=== PATIENT | male | born 1950 | race Caucasian/White ===

== ENCOUNTER 2017-10-13 01:13 | Inpatient (IN) | payer MEDICARE, BC ==
[2017-10-13] VITALS (15 sets, daily range): BP systolic 94–217; BP diastolic 42–110
[~2017-10-13] VITALS: Ht 175.3 cm; Wt 85.7 kg
[2017-10-13 01:48] LABS: HEMOGLOBIN 15.1 gm/dL (14.0-18.0); MCH 31.2 pg (26.0-34.0); NUCLEATED RBCS 0 /100WBC
[2017-10-13 01:55] LABS: MCHC 33.5 g/dL (28.0-37.0); MPV 9.2 fl. (7.2-11.1); PLATELET COUNT* 245 thou/uL (150-400); RBC 4.85 mil/uL (4.50-6.00); RDW-CV 13.1 % (10.5-14.5); WBC 23.6 thou/uL (4.0-11.0)
[2017-10-13 01:57] LABS: ANION GAP 10 mmol/L (7-16); BUN 23 mg/dL (7-18); CALCIUM 8.4 mg/dL (8.5-10.1); CHLORIDE 100 mmol/L (98-107); CO2 28 mmol/L (21-32); CREATININE 0.9 mg/dL (0.6-1.3); GLUCOSE 134 mg/dL (70-99); POTASSIUM 4.3 mmol/L (3.5-5.1); SODIUM 138 mmol/L (136-145)
[2017-10-13 02:13] LABS: ALKALINE PHOSPHATASE 102 U/L (46-116); LIPASE 93 U/L (73-393); MAGNESIUM 1.8 mg/dL (1.8-2.4); NT-PRO BRAIN NAT PEPTIDE 92 pg/mL (<300); SGOT 39 U/L (15-37); SGPT 39 U/L (30-65); TOTAL BILIRUBIN 0.3 mg/dL (<0.1-1.0); TOTAL PROTEIN 7.2 g/dL (6.4-8.2); TROPONIN-I LEVEL <0.06 ng/mL (<0.06)
[2017-10-13 02:15] LABS: APTT 20.5 Seconds (25.0-31.3); PROTIME 9.3 Seconds (9.20-11.50)
[2017-10-13 03:04] LABS: ABSOLUTE LYMPHOCYTES 2.1 thou/uL (0.8-5.3); ABSOLUTE MONOCYTES 1.7 thou/uL (0.0-1.2); ABSOLUTE NEUTROPHILS 19.8 thou/uL (1.6-8.1); PLATELET ESTIMATE ADEQUATE
[2017-10-13 03:05] LABS: CLUMPED PLTS OCCASIONAL
[2017-10-13 09:43] LABS: BE -2.3 mmol/L (-2 to +3); HCO3 24.1 mmol/L (22.0-26.0); PCO2 47.5 mmHg (35.0-45.0); pH 7.323 (7.340-7.450)
[2017-10-13 09:45] LABS: PO2 253.9 mmHg (75.0-100.0)
[2017-10-13 09:59] LABS: INFLUENZA B ANTIGEN None Detected (None Detect)
--- NOTE | 2017-10-13 12:13 | EKG ---
[place] [address] ELECTROCARDIOGRAM REPORT Name: YAQUELIN BOYLE Room: [address] ADM IN M.R.#: [id number] Admission: 10/13/17 Attend Phys: Camilo Rivera Discharge: Date of : 50 Report #: [id number] THIS REPORT FOR: //name// [facility] ED Test Date: 2017-10-13 Test Time: 01:36:25 Pat Name: YAQUELIN BOYLE Department: Room: [facility] Gender: M Mechanical Shovel Operator: MAJOR : 1950 Requested By: Sarmad Gardner Order Number: [id number] MD: Rafat Alford Measurements Intervals [place] Rate: 129 P: 73 MS: 155 QRS: 129 QRSD: 125 T: -36 QT: 299 QTc: 438 Interpretive Statements Sinus tachycardia Consider right atrial enlargement RBBB and LPFB Artifact in lead(s) I,II,III,aVR,aVF,V1,V2,V3,V4,V5,V6 No previous ECG available for comparison Electronically Signed On 10-13-2017 12:13:15 BULK MAIL CLERK by Rafat Alford [email or web address] <ELECTRONICALLY SIGNED> By: Rafat Alford MD, FACC 10/13/17 1213 0136 0136 Rafat Alford MD, FAC /EPI
[2017-10-13 15:24] LABS: CHOLESTEROL 245 mg/dL (<200); HDL CHOLESTEROL 61 mg/dL (>40); LDL CHOLESTEROL 162 mg/dL (<100); TRIGLYCERIDE 110 mg/dL (<150); VLDL 22 mg/dL (<40)
[2017-10-13 15:31] LABS: SERUM ASSESSMENT Clear
[2017-10-14] VITALS (10 sets, daily range): BP systolic 82–142; BP diastolic 43–78
[2017-10-14 03:40] LABS: HEMATOCRIT 39.9 % (42.0-52.0); HEMOGLOBIN 13.4 gm/dL (14.0-18.0); MCH 30.8 pg (26.0-34.0); MCHC 33.7 g/dL (28.0-37.0); MCV 91.3 fL (80.0-100.0); MPV 8.7 fl. (7.2-11.1); NUCLEATED RBCS 0 /100WBC; PLATELET COUNT* 206 thou/uL (150-400); RBC 4.37 mil/uL (4.50-6.00); RDW-CV 13.1 % (10.5-14.5)
[2017-10-14 04:00] LABS: BE 0.8 mmol/L (-2 to +3); HCO3 26.8 mmol/L (22.0-26.0); PCO2 48.7 mmHg (35.0-45.0); pH 7.359 (7.340-7.450)
[2017-10-14 04:01] LABS: CALCIUM 8.6 mg/dL (8.5-10.1); CREATININE 0.9 mg/dL (0.6-1.3); POTASSIUM 4.4 mmol/L (3.5-5.1)
[2017-10-14 04:38] LABS: ABSOLUTE LYMPHOCYTES 0.1 thou/uL (0.8-5.3); ABSOLUTE MONOCYTES 0.3 thou/uL (0.0-1.2); ABSOLUTE NEUTROPHILS 13.6 thou/uL (1.6-8.1); PLATELET ESTIMATE ADEQUATE
[2017-10-14 04:39] LABS: GIANT PLATELETS OCCASIONAL
[2017-10-15] VITALS: BP 145/71
[2017-10-15 03:41] VITALS: BP 158/66
[2017-10-15 04:04] LABS: ABSOLUTE LYMPHOCYTES 0.4 thou/uL (0.8-5.3); ABSOLUTE MONOCYTES 0.6 thou/uL (0.0-1.2); ABSOLUTE NEUTROPHILS 14.1 thou/uL (1.6-8.1); HEMATOCRIT 38.7 % (42.0-52.0); LYMPHOCYTES 2.5 %; MCH 30.9 pg (26.0-34.0); MCHC 33.5 g/dL (28.0-37.0); MCV 92.4 fL (80.0-100.0); MONOCYTES 3.9 %; MPV 8.9 fl. (7.2-11.1); NUCLEATED RBCS 0 /100WBC; PLATELET COUNT* 217 thou/uL (150-400); POLYS 93.6 %; RBC 4.19 mil/uL (4.50-6.00); WBC 15.1 thou/uL (4.0-11.0)
[2017-10-15 08:00] VITALS: BP 122/66; BP 125/50
[2017-10-15 16:00] VITALS: BP 109/87
[2017-10-15 20:15] VITALS: BP 139/71
[2017-10-16 08:00] VITALS: BP 144/73
--- NOTE | 2017-10-16 08:07 | CON ---
[address] [address] CONSULTATION Name: CHAU BOYLE Room: [address] IN M.R.#: [id number] Admission: 10/13/17 Attend Phys: Camilo Rivera Discharge: Date of : 50 Report #: [id number] THIS REPORT FOR: //name// CC: Cody Bateman REASON FOR CONSULTATION: Acute respiratory failure. HISTORY OF PRESENT ILLNESS: The patient is a 66-year-old male patient with known history of COPD, although he is not on oxygen at home, but he told me he has a nebulization machine at home. He presented to the hospital and admitted through the Emergency Room on 10/13/2017 with a chief complaint of increased shortness of breath over a course of 1 week. He is a current smoker. He has a nebulization machine at home that he tried to use that did not help his symptoms, although as an outpatient, he started an antibiotic that did not help. This cough was associated with thick sputum, and he could not produce phlegm, and he is very wheezy. Since he came in, he had been on BiPAP, although he did not require much oxygen, but he cannot come off the BiPAP. It was noted he is DNR/DNI. He denied fever, chest pain, shortness of breath, palpitation. He denied any headache or blurring of vision. He denied any lower extremity edema. He denied any sick contacts, but his family started on Tamiflu after his diagnosis. He denied any abdominal pain, nausea or vomiting. PAST MEDICAL HISTORY: History of COPD, recurrent bronchitis. PAST SURGICAL HISTORY: No major chest surgery. ALLERGIES: No known drug allergies. FAMILY HISTORY: Reviewed with the patient, noncontributory. SOCIAL HISTORY: He continues to smoke, but does not drink alcohol. Does not abuse drugs. HOME MEDICATIONS: He was recently on a course of antibiotics. Currently, he is on steroids, DuoNebs, Rocephin and azithromycin. REVIEW OF SYSTEMS: Full system review of the patient negative as mentioned above. PHYSICAL EXAMINATION: VITAL SIGNS: He is on BiPAP 30% FiO2, O2 saturation 94%, blood pressure 97/49, breathing 14 times a minute, temperature 36.0. GENERAL: Although he is on BiPAP, he was sitting in the bed, and he was talking. I was able to understand him through the BiPAP mask. HEAD: Normocephalic, atraumatic. EYES: Pupils equal, reactive to light. Extra[place] [address] CONSULTATION Name: CHAU BOYLE Room: [address]#: [id number] Admission: 10/13/17 Attend Phys: Camilo Rivera Discharge: Date of : 50 Report #: [id number] Not pale or jaundiced. ENT: External ear looks healthy and normal. Oral cavity not examined due to the BiPAP mask. NECK: Supple. No palpable lymph node. No palpable thyroid. Trachea is central. CHEST: On inspection normal, no deformities, however, on auscultation significant wheezes bilaterally with prolonged expiratory phase. No definite crackles. CARDIOVASCULAR: S1, S2, no murmur. ABDOMEN: Benign, soft, lax, nontender, positive bowel sounds. EXTREMITIES: Lower extremity: No edema, no calf tenderness. MUSCULOSKELETAL: Normal inspection, no deformities. PSYCHIATRIC: Mood and affect anxious. NEUROLOGIC: Moving 4 extremities spontaneously. No focal weakness. LYMPHATICS: No palpable lymph node. SKIN: Normal for age and race. No rash. LABORATORY DATA: His chest x-ray did not show acute process. He had 2 sets of ABGs yesterday and this morning, it showed hypercapnic respiratory failure, although this morning it looks better with a pH of 7.35, pCO2 of 48 and pO2 of 101. This was on 40% FiO2. His creatinine is 0.9, BUN 26, potassium 4.4. His BNP was not elevated. His INR is 1. His influenza A screen is positive. IMPRESSION: 1. Acute hypoxic and hypercapnic respiratory failure. 2. Bronchospasm. 3. Chronic obstructive pulmonary disease exacerbation. 4. Influenza A. The patient is noted to be DNR/DNI; however, he is reasonably tolerating the BiPAP. I would continue the BiPAP for now. ABG this morning more acceptable. Continue the patient on Tamiflu. I will add Mucinex, Brovana, Pulmicort. Continue the patient on scheduled nebulization treatment. I agree with the steroids and empirically on antibiotics. Discussed with the patient. I would continue the current therapy. I will do a chest x-ray and ABG in the morning. Condition guarded, prognosis guarded. However, he is tolerating the current measures and reporting some improvement. Thank you for the consult. <ELECTRONICALLY SIGNED> By: Rafiq Brandon MD 10/16/17 0807 0843 1408Gay Callahan MD /nt
[2017-10-16 09:13] LABS: BE 3.2 mmol/L (-2 to +3); HCO3 26.8 mmol/L (22.0-26.0); PCO2 37.2 mmHg (35.0-45.0); pH 7.475 (7.340-7.450)
[2017-10-16 09:16] LABS: PO2 55.8 mmHg (75.0-100.0)
[2017-10-16] MEDS ORDERED: SINGULAIR 10 MG10 M1 PO (09:35)
[2017-10-16] MEDS ORDERED: KEFLEX500 M1 PO (09:35)
[2017-10-16] MEDS ORDERED: PREDNISONE 10 M10 MG PO (09:35)
[2017-10-16 10:30] VITALS: BP 144/73
[2017-10-16] MEDS ORDERED: ASPIRIN300 MG PO (10:53)
[2017-10-16] MEDS ORDERED: ASPIRIN325 PO (11:23)
--- NOTE | 2017-10-16 13:58 | 2DMMODE ---
[place] [address] 2 D/M-MODE ECHOCARDIOGRAM Name: CHAU BOYLE Room: [address] IN [facility]#: [id number] Admission: 10/13/17 Attend Phys: Cordell Bateman Discharge: 10/16/17 Date of : 50 Date of Service: 10/16/17 1357 Report #: [id number] THIS REPORT FOR: //name// APPROVED REPORT Study performed: 10/16/2017 09:23:35 EXAM: Comprehensive 2D, Doppler, and color-flow Echocardiogram Patient Location: In-Patient Room #: [facility] Status: routine BSA: 2.02 HR: 80 bpm BP: 139/71 mmHg Rhythm: NSR Other Information Study Quality: Good Indications Abnormal ECG Dyspnea 2D Dimensions LVEF(%): 63.04 (>50%) IVSd: 9.87 (7-11mm) LVOT Diam: 21.42 (18-24mm) LVDd: 49.34 mm PWd: 9.29 (7-11mm) Ascending Ao: 34.41 (22-36mm) LVDs: 32.45 (25-40mm) Aortic Root: 33.96 mm Cobian's LVEF: 63.04 % Volumes Left Atrial Volume (Systole) LA ESV Index: 22.90 mL/m2 Aortic Valve AoV Peak Yuval.: 1.31 m/s AO Peak Gr.: 6.84 mmHg LVOT Max P.34 mmHg AO Mean Gr.: 3.69 mmHg LVOT Mean P.67 mmHg LVOT Max V: 1.04 m/s AO V2 VTI: 26.73 cm LVOT Mean V: 0.58 m/s JAMAR (VTI): 2.79 cm2 LVOT V1 VTI: 20.69 [place] [address] 2 D/M-MODE ECHOCARDIOGRAM Name: CHAU BOYLE Room: [address]#: [id number] Admission: 10/13/17 Attend Phys: Cordell Bateman Discharge: 10/16/17 Date of : 50 Date of Service: 10/16/17 1357 Report #: [id number] E/A Ratio: 1.08 MV Decel. Time: 105.67 ms MV E Max Yuval.: 0.92 m/s MV PHT: 30.64 ms MVA (PHT): 7.18 cm2 TDI E/Lateral E': 8.36 E/Medial E': 6.57 Medial E' Yuval.: 0.14 m/s Lateral E' Yuval.: 0.11 m/s Pulmonary Valve PV Peak Yuval.: 0.97 m/s PV Peak Gr.: 3.73 mmHg Tricuspid Valve TR Peak Gr.: 27.75 mmHg RVSP: 32.00 mmHg Left Ventricle The left ventricle is normal size. There is normal LV segmental wall motion. There is normal left ventricular wall thickness. Left ventricular systolic function is normal. The left ventricular ejection fraction is within the normal range. LVEF is 55-60%. The left ventricular diastolic function is normal. Right Ventricle The right ventricle is normal size. The right ventricular systolic function is normal. Atria The left atrium size is normal. The right atrium size is normal. Aortic Valve The aortic valve is normal in structure. No aortic regurgitation is present. There is no aortic valvular stenosis. Mitral Valve The mitral valve is normal in structure. There is no mitral valve regurgitation noted. No evidence of mitral valve stenosis. Tricuspid Valve The tricuspid valve is normal in structure. Trace tricuspid regurgitation. The RVSP is 30-35 mmHg. Pulmonic Valve The pulmonary valve is normal in structure. [place] [address] 2 D/M-MODE ECHOCARDIOGRAM Name: CHAU BOYLE Room: [address] IN M.R.#: [id number] Admission: 10/13/17 Attend Phys: Cordell Bateman Discharge: 10/16/17 Date of : 50 Date of Service: 10/16/17 1357 Report #: [id number] valvular regurgitation. Great Vessels The aortic root is normal in size. IVC is normal in size and collapses with >50% inspiration Pericardium There is no pericardial effusion. <Conclusion> LVEF is 55-60%. There is normal LV segmental wall motion. No aortic regurgitation is present. There is no aortic valvular stenosis. There is no mitral valve regurgitation noted. No evidence of mitral valve stenosis. Trace tricuspid regurgitation. The RVSP is 30-35 mmHg. <ELECTRONICALLY SIGNED> By: Rafat Alford MD, FACC 10/16/17 1357 1357 1357 Rafat Alford MD, FACC /INF
--- NOTE | 2017-10-16 15:19 | CON ---
[address] [address] CONSULTATION Name: CHAU BOYLE Room: [address]#: [id number] Admission: 10/13/17 Attend Phys: Camilo Rivera Discharge: 10/16/17 Date of : 50 Report #: [id number] THIS REPORT FOR: //name// CC: Cody Bateman DATE OF SERVICE: 10/13/2017 REASON FOR CONSULTATION: Shortness of breath, abnormal troponin. PRIMARY CARE PHYSICIAN: Cody Hedrick MD. CHIEF COMPLAINT: Shortness of breath. HISTORY OF PRESENT ILLNESS: The patient is a 66-year-old man with chronic obstructive pulmonary disease, presented with 4 days of increasing shortness of breath. We are asked to see him because he had a right bundle branch block and a troponin of 0.87. At no time during his hospitalization or before the hospitalization had the patient complained of chest pain, neck pain or jaw pain. He had been short of breath. He had a nonproductive cough. He denies fever or chills. He has no documented history of heart disease. He denies exertional chest pain or pressure. He denies palpitations, syncope, or presyncope. He has been in sinus rhythm, sinus tachycardia while on telemetry in the ICU. Currently, he is respiring with a BiPAP machine as his oxygen levels were quite low on initial presentation with sats in the 80s. He denies syncope or presyncope. PAST MEDICAL HISTORY: He has a history of negative stress testing about 5 years ago. He has a history of chronic obstructive pulmonary disease. PAST SURGICAL HISTORY: No recent surgeries. HOME MEDICATIONS: Include albuterol nebulizer. ALLERGIES: He has no known drug allergies. REVIEW OF SYSTEMS: GASTROINTESTINAL: [place] [address] CONSULTATION Name: CHAU BOYLE Room: [address]#: [id number] Admission: 10/13/17 Attend Phys: Camilo Rivera Discharge: 10/16/17 Date of : 50 Report #: [id number] GENITOURINARY: No dysuria or hematuria. CARDIOVASCULAR: No chest pain. No palpitation or syncope. HEMATOLOGIC: No anemia or bleeding disorders. RENAL: No history of kidney failure. ENDOCRINE: He is not known to be a diabetic. PERIPHERAL ARTERY DISEASE: Denies history of cardiovascular disease. ALLERGIES: Denies any aspirin or contrast allergies. SKIN: No rashes. EYES: No loss of vision. THROAT: Denies any dysphagia. SOCIAL HISTORY: He is an active smoker. MEDICATIONS: He is on Solu-Medrol and antibiotics, ceftriaxone and azithromycin. PHYSICAL EXAMINATION: VITAL SIGNS: Blood pressure 135/70, respirations 22, O2 sats 100 on BiPAP 5 liters bleeding. GENERAL: This is a middle-aged male. He is alert, in no apparent distress. NECK: Supple. No jugular venous distention. CARDIOVASCULAR: Regular. I cannot hear a murmur. LUNGS: Clear to auscultation. ABDOMEN: Soft, nontender. EXTREMITIES: No peripheral edema. SKIN: Warm and dry. NEUROLOGIC: No focal deficits. PSYCHIATRIC: The patient has appropriate mood and affect. DIAGNOSTIC DATA: Electrocardiogram shows sinus rhythm with right bundle branch block. LABORATORY DATA: Hemoglobin 15.1, white blood cell count is 23, platelet count is 245,000. Sodium is 138, potassium is 4.3, chloride 100, BUN is 23, creatinine is 0.9, glucose 170. Troponin I is 0.87. CK is 389. IMPRESSION: 1. Abnormal troponin. This is probably secondary to right heart strain, but certainly he does have some risk factors including age, cholesterol status not known. I would arrange for a stress test when his pulmonary function recovers. 2. Chronic obstructive pulmonary disease exacerbation. His chest x-ray seems like someone [place] [address] CONSULTATION Name: CHAU BOYLE Room: [address]#: [id number] Admission: 10/13/17 Attend Phys: Camilo Rivera Discharge: 10/16/17 Date of : 50 Report #: [id number] 3. Right bundle branch block. He does not seem to present with findings compatible with congestive heart failure and his heart rates are stable. <ELECTRONICALLY SIGNED> By: Rafat Alford MD, FACC 10/16/17 1519 1018 [id number] Alford MD, FACC /nt
--- NOTE | 2017-10-16 16:20 | CARDNUC ---
[place] [address] CARDIAC NUCLEAR IMAGING REPORT Name: CHAU BOYLE Room: [address]#: [id number] Admission: 10/13/17 Attend Phys: Cordell Bateman Discharge: 10/16/17 Date of : 50 Date of Service: 10/16/17 1620 Report #: [id number] THIS REPORT FOR: //name// APPROVED REPORT Exam: Nuclear Stress Test Indication: Dyspnea Patient Location: In-Patient Stress Tech: [facility] Stress Nurse: Kristen Connor RN Ht: 5 ft 9 in Wt: 189 lbs BSA: 2.02 m2 BMI: 27.90 Medical History Medical History: COPD Medications: No cardiac medications Allergies: No known drug allergies Cardiac Risk Factors: Age, Current Smoker Exercise History: Indeterminate Stress Test Details Stress Test: Pharmacologic stress testing performed using 0.4 mg of regadenoson per 5 mL given IV over 10 seconds. Reason for pharmacologic stress test: physical limitation. HR Resting HR: 94 bpm Max Heart Rate (APMHR): 154 bpm Max HR Achieved: 108 bpm Target HR (85% APMHR): 130 bpm % of APMHR: 70 Recovery HR: 92 bpm HR response to stress: Normal HR response to stress BP Resting BP: 143/68 mmHg Max BP: 193/77 mmHg BP response to stress: Normal blood pressure response to stress. ECG Resting ECG: Sinus Rhythm Stress ECG: Sinus Rhythm ST Change: [place] [address] CARDIAC NUCLEAR IMAGING REPORT Name: CHAU BOYLE Room: [address]#: [id number] Admission: 10/13/17 Attend Phys: Cordell Bateman Discharge: 10/16/17 Date of : 50 Date of Service: 10/16/17 1620 Report #: [id number] Reason for Termination: Completed protocol Stress Symptoms: chest tightness Exercise duration: 0 min sec Exercise capacity: 1.0 METs Nurse Comments Patient complained of chest tightness post lexiscan, rated 1, resolved in recovery. Stress ECG Conclusion negative ecg portion NM EXAM: Myocardial Perfusion REST/STRESS Imaging Protocol: Rest Tc-99m/Stress Tc-99m 1 day Resting Data Rest SPECT myocardial perfusion imaging was performed in supine position 45 minutes following the intravenous injection of 8.4 mCi of Tc-99m Sestamibi. Time of rest injection: 09 Time of rest imagin The images were gated to evaluate regional wall motion and calculate left ventricular ejection fraction. Administration Route: IV Administration Site: Left Arm Pharmacologic Stress Pharmacologic stress test was performed by injecting Regadenoson 0.4 mg IV push followed by the intravenous injection of 23.6 mCi of Tc-99m Sestamibi. Time of stress injection: 1120 Time of stress imagin Administration Route: IV Administration Site: Right Arm The images were gated to evaluate regional wall motion and calculate left ventricular ejection fraction. Prone imaging was performed. Study Quality Study: Fair Artifact: Moderate Increased GI uptake Lung Uptake: Normal Study Data At rest, the left ventricular ejection fraction was 72%.. Post stress, the left ventricular ejection was 76%[place] [address] CARDIAC NUCLEAR IMAGING REPORT Name: CHAU BOYLE Room: [address] IN ..#: [id number] Admission: 10/13/17 Attend Phys: Cordell Bateman Discharge: 10/16/17 Date of : 50 Date of Service: 10/16/17 1620 Report #: [id number] SSS: 11 SRS: 9 SDS: 2 TID = 1.08. Perfusion There is a large fixed inferior defect, of severe intensity. There is a significant amount of gut uptake, adjacent to this inferior defect. There is uniform uptake of tracer in all other segments.When imaged prone the defect resolved,indicating artifact. Images were reviewed using Frazr. Wall Motion normal in all segments Nuclear Conclusion ECG Findings: negative for ischemia Clinical Findings: non-diagnostic Nuclear Findings: negative for ischemia Exercise Capacity: not assessed Left Ventricular Function: normal Risk Study: low This study represents a low likelihood for occlusive CAD, the defect is likely artifact. <Conclusion> negative ecg portion <ELECTRONICALLY SIGNED> By: Rafat Alford MD, FACC 10/16/171619 19 19 Rafat Alford MD, FACC /INF
== END 2017-10-16 13:13 | disposition home or self-care (01) | DRG 871 ==
LOC: M.ERS 01:13 → M.TBA-ER 02:34 → M.3W 02:34 → M.ICU 02:50 → M.3W 10-14 17:56
PROVIDERS: Emergency Medicine Emergency Medical Services; Internal Medicine Pulmonary Disease; ADMIT Internal Medicine
PROC: B24BZZ4 Ultrasonography of Heart with Aorta, Transesophageal (ICD-10-PCS; principal; 2017-10-16)
DX: A41.9 Sepsis, unspecified organism (principal); J96.01 Acute respiratory failure with hypoxia; J96.02 Acute respiratory failure with hypercapnia; J44.1 Chronic obstructive pulmonary disease with (acute) exacerbation; Z66 Do not resuscitate; J10.1 Influenza due to other identified influenza virus with other respiratory manifestations; I45.10 Unspecified right bundle-branch block; J98.01 Acute bronchospasm; E78.5 Hyperlipidemia, unspecified; F17.210 Nicotine dependence, cigarettes, uncomplicated; Z79.899 Other long term (current) drug therapy

== ENCOUNTER 2020-11-22 10:22 | Inpatient (IN) | payer MEDICARE, BC ==
[2020-11-22] VITALS (13 sets, daily range): BP systolic 80–211; BP diastolic 54–163
[~2020-11-22] VITALS: Ht 172.7 cm; Wt 76.7 kg
[~2020-11-22 10:22] MED LIST: ASPIRIN300 MG PO; ASPIRIN325 PO; KEFLEX500 M1 PO; PREDNISONE 10 M10 MG PO; SINGULAIR 10 MG10 M1 PO
[2020-11-22] MEDS ORDERED: PREDNISONE 10 M10 MG PO (10:38)
[2020-11-22] MEDS ORDERED: [UNRECOGNIZED DRUG - OTHER] PO (10:40)
[2020-11-22] MEDS ORDERED: DUONEBS (10:41)
[2020-11-22] MEDS ORDERED: PROAIR HFA8.5 GM INH (10:44)
[2020-11-22] MEDS ORDERED: ALBUTEROL2.5 MG/31 INH (10:44)
[2020-11-22 10:46] LABS: HEMATOCRIT 44.3 % (42.0-52.0); HEMOGLOBIN 14.6 gm/dL (14.0-18.0); MCH 30.7 pg (26.0-34.0); MCHC 32.9 g/dL (28.0-37.0); MCV 93.2 fL (80.0-100.0); NUCLEATED RBCS 0 /100WBC; PLATELET COUNT* 337 thou/uL (150-400); RBC 4.75 mil/uL (4.50-6.00); RDW-CV 13.7 % (10.5-14.5); WBC 24.4 thou/uL (4.0-11.0)
[2020-11-22 11:26] LABS: ABSOLUTE LYMPHOCYTES 5.4 thou/uL (0.8-5.3); ABSOLUTE MONOCYTES 0.7 thou/uL (0.0-1.2); ABSOLUTE NEUTROPHILS 18.3 thou/uL (1.6-8.1); PLATELET ESTIMATE ADEQUATE
[2020-11-22 11:31] LABS: CALCIUM 9.4 mg/dL (8.5-10.1); CREATININE 1.1 mg/dL (0.6-1.3); POTASSIUM 3.7 mmol/L (3.5-5.1)
[2020-11-22 11:41] LABS: ALBUMIN 3.8 g/dL (3.4-5.0); MAGNESIUM 2.3 mg/dL (1.8-2.4); TOTAL BILIRUBIN 0.4 mg/dL (<0.1-1.0); TOTAL PROTEIN 7.3 g/dL (6.4-8.2)
--- NOTE | 2020-11-22 15:52 | EKG ---
[place] [address] ELECTROCARDIOGRAM REPORT Name: CHAU BOYLE Room: [place] [address] ADM IN [facility]#: [id number] Admission: 11/22/20 Attend Phys: Stefanie Munoz, Discharge: Date of : 50 Date of Service: 11/22/20 1033 Report #: [id number] THIS REPORT FOR: //name// [facility] ED Test Date: 2020-11-22 Test Time: 10:33:10 Pat Name: CHAU BOYLE Department: Room: [place] [address] Gender: M Administrative Services Officer: SAMANTHA : 1950 Requested By: Sarmad Gardner Order Number: [id number] Betina MD: Jua nJ Lawson Measurements Intervals [place] Rate: 115 P: 230 TN: 178 QRS: -82 QRSD: 147 T: 85 QT: 384 QTc: 531 Interpretive Statements Sinus or ectopic atrial tachycardia RBBB and LAFB Artifact in lead(s) I,II,aVR,aVL,V1,V2,V3,V5,V6 and baseline wander in lead(s) V1,V2 Compared to ECG 10/13/2017 01:36:25 Left anterior fascicular block now present Myocardial infarct finding now present Left posterior fascicular block no longer present Electronically Signed On 11-22-2020 15:52:05 CDT by Juan J Lawson [email or web address] <ELECTRONICALLY SIGNED> By: Juan J Lawson MD, [facility] 11/22/20 1552 1033 1033 Juan J Lawson MD, [facility] /EPI
--- NOTE | 2020-11-22 15:53 | EKG ---
[place] [address] ELECTROCARDIOGRAM REPORT Name: CHAU BOYLE Room: [place] [address] ADM IN [facility].#: [id number] Admission: 11/22/20 Attend Phys: Stefanie Munoz, Discharge: Date of : 50 Date of Service: 11/22/20 1059 Report #: [id number] THIS REPORT FOR: //name// [facility] ED Test Date: 2020-11-22 Test Time: 10:59:11 Pat Name: CHAU BOYLE Department: Room: [facility] Gender: M Student Financial Services Counselor: rosy : 1950 Requested By: Sarmad Gardner Order Number: [id number] MD: Juan J Lawson Measurements Intervals [place] Rate: 106 P: 66 AL: 168 QRS: -80 QRSD: 153 T: 87 QT: 366 QTc: 486 Interpretive Statements Sinus tachycardia RBBB and LAFB Baseline wander in lead(s) V2,V6 Compared to ECG 10/13/2017 01:36:25 no change Electronically Signed On 11-22-2020 15:52:56 CDT by Juan J Lawson [email or web address] <ELECTRONICALLY SIGNED> By: Juan J Lawson MD, FAC 11/22/20 1552 1059 1059 Juan J Lawson MD, FAC /EPI
--- NOTE | 2020-11-22 16:04 | 2DMMODE ---
[place] [address] 2 D/M-MODE ECHOCARDIOGRAM Name: CHAU BOYLE Room: [place] [address] [address] [facility].#: [id number] Admission: 11/22/20 Attend Phys: Stefanie Munoz, Discharge: Date of : 50 Date of Service: 11/22/20 1604 Report #: [id number] THIS REPORT FOR: cc: Cody Hedrick MD, Bruce D. MD Blick,Juan J Henson MD [facility] ~ APPROVED REPORT Study performed: 11/22/2020 14:33:19 EXAM: Comprehensive 2D, Doppler, and color-flow Echocardiogram Patient Location: In-Patient Room #: er Status: routine BSA: 1.91 HR: 101 bpm BP: 152/70 mmHg Rhythm: NSR Other Information Study Quality: Good Indications Dyspnea Elevated Troponin 2D Dimensions IVSd: 11.82 (7-11mm) LVOT Diam: 19.25 (18-24mm) LVDd: 49.75 mm PWd: 9.90 (7-11mm) Ascending Ao: 29.17 (22-36mm) LVDs: 35.65 (25-40mm) Aortic Root: 36.06 mm Volumes Left Atrial Volume (Systole) LA ESV Index: 19.80 mL/m2 Aortic Valve AoV Peak Yuval.: 1.08 m/s AO Peak Gr.: 4.63 mmHg LVOT Max P.61 mmHg AO Mean Gr.: 2.48 mmHg LVOT Mean P.57 mmHg LVOT Max V: 0.95 m/s AO V2 VTI: 17.30 cm LVOT Mean V: 0.57 m/s JAMAR (VTI): 2.72 cm2 LVOT V1 VTI: 16.14 [place] [address] 2 D/M-MODE ECHOCARDIOGRAM Name: CHAU BOYLE Room: [address] IN [facility]#: [id number] Admission: 11/22/20 Attend Phys: Stefanie Munoz, Discharge: Date of : 50 Date of Service: 11/22/20 1604 Report #: [id number] Mitral Valve E/A Ratio: 1.94 MV Decel. Time: 123.07 ms MV E Max Yuval.: 0.91 m/s MV PHT: 35.69 ms MVA (PHT): 6.16 cm2 TDI E/Lateral E': 5.06 E/Medial E': 13.00 Medial E' Yuval.: 0.07 m/s Lateral E' Yuval.: 0.18 m/s Pulmonary Valve PV Peak Yuval.: 0.84 m/s PV Peak Gr.: 2.82 mmHg Tricuspid Valve RAP Estimate: 5.00 mmHg TR Peak Gr.: 26.59 mmHg RVSP: 31.00 mmHg PA Pressure: 31.00 mmHg Left Ventricle Left ventricle is mildly dilated. akinesis noted of the mid and distal anteroseptal wall and apex There is normal left ventricular wall thickness. Left ventricular systolic function is normal. The left ventricular ejection fraction is within the normal range. LVEF is 25-30%. The left ventricular diastolic function is normal. Right Ventricle The right ventricle is normal size. The right ventricular systolic function is normal. Atria The left atrium size is normal. The right atrium size is normal. Aortic Valve The aortic valve is normal in structure. No aortic regurgitation is present. There is no aortic valvular stenosis. Mitral Valve The mitral valve is normal in structure. There is no mitral valve regurgitation noted. No evidence of mitral valve stenosis. Tricuspid Valve The tricuspid valve is normal in structure[place] [address] 2 D/M-MODE ECHOCARDIOGRAM Name: CHAU BOYLE Room: [address] IN [facility]#: [id number] Admission: 11/22/20 Attend Phys: Stefanie Munoz, Discharge: Date of : 50 Date of Service: 11/22/20 1604 Report #: [id number] regurgitation. estimated pa pressure 35 mm Hg Pulmonic Valve The pulmonary valve is normal in structure. There is no pulmonic valvular regurgitation. Great Vessels The aortic root is normal in size. IVC is normal in size and collapses >50% with inspiration. Pericardium There is no pericardial effusion. <Conclusion> Left ventricle is mildly dilated. akinesis noted of the mid and distal anteroseptal wall and apex LVEF is 25-30%. <ELECTRONICALLY SIGNED> By: Juan J Lawson MD, [facility] 11/22/20 1604 1604 1604 Juan J Lawson MD, FACC /INF
[2020-11-22 18:37] LABS: BE -4.1 mmol/L (-2 to +3); PCO2 42.2 mmHg (35.0-45.0); PO2 99.2 mmHg (75.0-100.0); pH 7.329 (7.340-7.450)
[2020-11-23] VITALS (21 sets, daily range): BP systolic 114–144; BP diastolic 55–73
[2020-11-23 06:14] LABS: HEMATOCRIT 36.8 % (42.0-52.0); MCH 30.8 pg (26.0-34.0); MCHC 33.6 g/dL (28.0-37.0); MCV 91.8 fL (80.0-100.0); MPV 8.1 fl. (7.2-11.1); RBC 4.01 mil/uL (4.50-6.00); RDW-CV 13.6 % (10.5-14.5); WBC 11.5 thou/uL (4.0-11.0)
[2020-11-23 06:24] LABS: HEMOGLOBIN 12.4 gm/dL (14.0-18.0)
[2020-11-23 06:33] LABS: ALBUMIN 3.1 g/dL (3.4-5.0); CALCIUM 8.9 mg/dL (8.5-10.1); CREATININE 0.9 mg/dL (0.6-1.3); MAGNESIUM 2.4 mg/dL (1.8-2.4); POTASSIUM 4.3 mmol/L (3.5-5.1); TOTAL BILIRUBIN 0.4 mg/dL (<0.1-1.0); TOTAL PROTEIN 5.9 g/dL (6.4-8.2)
[2020-11-23 06:35] LABS: TROPONIN-I LEVEL 2.11 ng/mL (<0.06)
--- NOTE | 2020-11-23 12:19 | EKG ---
[place] [address] ELECTROCARDIOGRAM REPORT Name: CHAU BOYLE Room: [address] ADM IN M.R.#: [id number] Admission: 11/22/20 Attend Phys: Stefanie Munoz, Discharge: Date of : 50 Date of Service: 11/22/20 1514 Report #: [id number] THIS REPORT FOR: //name// [facility] ED Test Date: 2020-11-22 Test Time: 15:14:59 Pat Name: CHAU BOYLE Department: Room: [address] Gender: M Manager Epic: SAMANTHA : 1950 Requested By: Sarmad Gardner Order Number: [id number] Betina MD: Waldo Trinh Measurements Intervals [place] Rate: 111 P: MN: QRS: -82 QRSD: 143 T: 97 QT: 402 QTc: 547 Interpretive Statements Sinus tachycardia with first-degree AV block Right bundle branch block and left anterior fascicular block Compared to ECG 11/22/2020 10:59:11 No significant changes noted Electronically Signed On 11-23-2020 12:19:33 CDT by Waldo Trinh [email or web address] <ELECTRONICALLY SIGNED> By: Waldo Trinh MD, FACC 11/23/20 1219 1514 1514 Waldo Trinh MD, FACC /EPI
--- NOTE | 2020-11-23 15:21 | CON ---
[address] [address] CONSULTATION Name: CHAU BOYLE Room: [address] IN M.R.#: [id number] Admission: 11/22/20 Attend Phys: Stefanie Munoz MD Discharge: Date of : 50 Report #: [id number] THIS REPORT FOR: cc: Cody Hedrick MD, Bruce D. MD ~ Juan J Lawson MD [facility] DATE OF SERVICE: 11/22/2020 CARDIOLOGY CONSULTATION HISTORY OF PRESENT ILLNESS: The patient is a 69-year-old single white male who I was asked to see in the Emergency Room today after he complained of being short of breath. The patient has an extensive past medical history. Unfortunately, he has never been here to [place] before. He has a history of COPD and used to smoke a pack of cigarettes a day for 40 years. He is now down to just less than half pack of cigarettes a day. Recently, he has had more shortness of breath. He went to urgent care recently and he was given antibiotics and prednisone. However, he continued to be short of breath. He came to the Emergency Room today and was admitted for further evaluation and treatment. He apparently had a stress test in the past that showed no significant coronary artery disease. He denies any chest pain, palpitations, lightheadedness, or syncope. PAST MEDICAL HISTORY: He has had appendectomy, cataract extraction. No history of hypertension, diabetes, hyperlipidemia. MEDICATIONS: His only medications include prednisone, Singulair, vitamins. ALLERGIES: He has no known drug allergies. FAMILY HISTORY: The patient is adopted. 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 No alcohol abuse. REVIEW OF SYSTEMS: He has had no history of stroke, liver disease, kidney disease, cancer, psychiatric illness, chronic skin condition. Does wear glasses. PHYSICAL EXAMINATION: GENERAL: Revealed a middle-aged male, who appeared in no acute distress. VITAL SIGNS: His blood pressure is 150/70, pulse is 90, he is afebrile. HEENT: He was anicteric. Conjunctivae pink. Mucous membranes moist. NECK: Veins nondistended. [place] [address] CONSULTATION Name: CHAU BOYLE Room: [address]#: [id number] Admission: 11/22/20 Attend Phys: Stefanie Munoz MD Discharge: Date of : 50 Report #: [id number] CHEST: Revealed distant breath sounds. CARDIOVASCULAR: Regular rate and rhythm. No murmurs. ABDOMEN: Soft. EXTREMITIES: Had no edema. Dorsalis pedis pulse cannot be palpated. SKIN: Cool and dry. NEUROLOGIC: Nonfocal. RADIOLOGICAL DATA: His ECG shows sinus tachycardia with a left bundle branch block. The patient actually had an echocardiogram done here at [facility] back in 2018 that showed ejection fraction of 60%. He actually had a nuclear stress test back in 2018 that showed fixed inferior defect that resolved with prone imaging suggesting artifact, so the study was negative for ischemia. The patient actually had a chest x-ray in the Emergency Room today that showed scarring, normal heart size, clear vasculature. He actually had a CT scan of the chest using a PE protocol in the Emergency Room today that showed no aortic dissection, tortuous aorta. He had mesenteric stenosis noted, hiatal hernia. LABORATORY WORK: Sodium 140, creatinine 1.1. Liver function studies were normal. Troponin 0.29. Previous cholesterol 245, triglyceride 110, HDL 61, LDL 162. White blood cell count 24.4, hemoglobin 14.6. IMPRESSION AND RECOMMENDATIONS: 1. Shortness of breath. Suspect secondary to chronic obstructive pulmonary disease. 2. Tobacco abuse. 3. Mesenteric atherosclerosis. 4. Peripheral arterial disease noted on CT scan. 5. Hyperlipidemia. I would consider statin drug. <ELECTRONICALLY SIGNED> By: Juan J Lawson MD, FACC 11/23/20 1521 1509 [id number] Lawson MD, FACC /nt
[2020-11-24] VITALS (13 sets, daily range): BP systolic 109–153; BP diastolic 49–85
[2020-11-24 04:32] LABS: HEMATOCRIT 35.7 % (42.0-52.0); HEMOGLOBIN 11.9 gm/dL (14.0-18.0); MCH 30.8 pg (26.0-34.0); MCHC 33.5 g/dL (28.0-37.0); MCV 92.1 fL (80.0-100.0); MPV 8.3 fl. (7.2-11.1); RBC 3.88 mil/uL (4.50-6.00); RDW-CV 13.7 % (10.5-14.5)
[2020-11-24 04:48] LABS: CALCIUM 8.4 mg/dL (8.5-10.1); CREATININE 0.8 mg/dL (0.6-1.3); MAGNESIUM 2.4 mg/dL (1.8-2.4); POTASSIUM 4.2 mmol/L (3.5-5.1)
[2020-11-24 05:11] LABS: TROPONIN-I LEVEL 2.66 ng/mL (<0.06)
--- NOTE | 2020-11-24 16:08 | CARD ---
[address] [address] CARDIAC CATH REPORT Name: CHAU BOYLE Room: [address] IN [facility]#: [id number] Admission: 11/22/20 Attend Phys: Stefanie Munoz MD Discharge: Date of : 50 Report #: [id number] THIS REPORT FOR: cc: Cody Hedrick MD, Bruce D. MD ~ Juan J Lawson MD [facility] APPROVED REPORT Study performed: 11/24/2020 14:39:33 Patient Details Patient Status: In-Patient Room #: The patient is a 69 year-old male Event Personnel Juan J Lawson Hood Fitter, Juanita Pereira RN Pack Train Driver, Paul Rocha QUALITY AUDIT REPRESENTATIVE Monitor, Gillian Triana RTR Scrub Procedures Performed Art Access - R femoral artery* Left Heart Cath w/or w/o Coronaries [id number] [facility] Hemostasis w/ Mynx Indication Abnormal ECG, Non-STEMI , Dyspnea, Cardiomyopathy Risk Factors Peripheral Vascular Disease, Chronic Lung DiseaseHypercholesterolemia, Tobacco History () Procedure Narrative The patient was brought electively to the Cardiac Catheterization Laboratory and was prepped and draped in a sterile manner. The right femoral was infiltrated with 2% Lidocaine subcutaneous anesthesia. A Center 6 FR sheath was inserted into the right femoral artery. Coronary angiography was performed using coronary diagnostic catheters. The right coronary system was accessed and visualized with a JR4 catheter. The left coronary system was accessed and visualized with a JL4 catheter. The left ventricle was accessed and visualized with a Pig Tail catheter. Left ventricular/Aortic Valve gradient assessed via catheter pullback. Left ventriculogram was performed in ORELLANA projection. Closure device was deployed with a 6 Fr Mynx. The patient tolerated the procedure well and there were no complications associated with the procedure. There [place] [address] CARDIAC CATH REPORT Name: CHAU BOYLE Room: [address] IN ..#: [id number] Admission: 11/22/20 Attend Phys: Stefanei Munoz MD Discharge: Date of : 50 Report #: [id number] procedure from the right radial artery. 6 pakistani sheath was placed into the right radial artery. However, the right inominate artery appeared chronically occluded. It was therefore decided to proceed from the right femoral artery. Tortuosity was noted of the iliac artery, and there appeared to be aneursymal dilatation of the distal aorta. [place] wire was required to advance the wire into the ascending aorta. Vascband was placed over the right radial artery after the radial sheath was removed at the end of the procedure. Intraoperative Conscious Sedation Sedation start time: 1440 Case end Time: 1519 Versed 3 mg Fluoro Time: 7.5 minutes Dose: DAP 99692 cGycm2 834 mGy Contrast Type and Amount: Visipaque 150 ml Coronary Angiography The patient's coronary anatomy is right dominant. Diagnostic Cath Left Main 0% stenosis LAD 0% stenosis Circumflex 0% stenosis Right Coronary 60% stenosis noted of the mid RCA Ramus 0% stenosis Left Ventriculography The left ventricular ejection fraction is estimated to be 25-30%. Left ventricular wall motion abnormalities are present. There is 1+ mitral insufficiency. akinesis noted of the mid and distal anterolateral wall and the entire apex. Hemodynamics The aortic pressure is 126/61 mmHg with a mean of 88 mmHg. The left ventricular pressure is 126/20 mmHg with a mean of mmHg. The left ventricular end diastolic pressure is 25 mmHg. There was no gradient across the aortic valve upon pullback. Pullback from the left ventricle to the aorta revealed no gradient across the aortic valve. Conclusion 1. no significant CAD with a 60% stenosis [place] [address] CARDIAC CATH REPORT Name: CHAU BOYLE Room: [address] IN [facility]#: [id number] Admission: 11/22/20 Attend Phys: Stefanie Munoz MD Discharge: Date of : 50 Report #: [id number] 2. LVEF 25-30% 3. findings consistent with apical ballooning syndrome Recommendations Smoking Cessation <ELECTRONICALLY SIGNED> By: Juan J Lawson MD, [facility] 11/24/20 1608 1608 [id number] Lawson MD, [facility] /INF
[2020-11-25 00:12] VITALS: BP 122/59
[2020-11-25 04:29] VITALS: BP 138/63
[2020-11-25 05:55] LABS: HEMATOCRIT 38.1 % (42.0-52.0); HEMOGLOBIN 12.7 gm/dL (14.0-18.0); MCH 30.8 pg (26.0-34.0); MCHC 33.4 g/dL (28.0-37.0); MCV 92.2 fL (80.0-100.0); MPV 8.1 fl. (7.2-11.1); RBC 4.13 mil/uL (4.50-6.00); RDW-CV 13.2 % (10.5-14.5); WBC 12.4 thou/uL (4.0-11.0)
[2020-11-25 06:29] LABS: CALCIUM 8.6 mg/dL (8.5-10.1); CREATININE 0.8 mg/dL (0.6-1.3); MAGNESIUM 2.4 mg/dL (1.8-2.4); POTASSIUM 4.2 mmol/L (3.5-5.1)
[2020-11-25] MEDS ORDERED: CARVEDILOL3.125 MG PO (10:24)
[2020-11-25] MEDS ORDERED: SPIRONOLACTONE25 MG PO (10:24)
[2020-11-25] MEDS ORDERED: LASIX 20 MG TAB20 MG PO (10:24)
[2020-11-25] MEDS ORDERED: BAYER CHEWABLE81 MG PO (10:24)
[2020-11-25] MEDS ORDERED: CLOPIDOGREL75 MG PO (10:24)
[2020-11-25] MEDS ORDERED: COZAAR 25 MG TA25 M1 PO (10:24)
[2020-11-25] MEDS ORDERED: DOXYCYCLINE 10100 MG PO (10:24)
[2020-11-25] MEDS ORDERED: LIPITOR 40 MG T40 M1 PO (10:24)
[2020-11-25] MEDS ORDERED: PREDNISONE 10 M10 MG PO (10:24)
[2020-11-25] MEDS ORDERED: CEFDINIR300 MG PO (10:24)
[2020-11-25 12:23] VITALS: BP 124/64
== END 2020-11-25 12:50 | disposition home or self-care (01) | DRG 871 ==
LOC: M.ERS 10:22 → M.ICU 11:56 → M.TBA-ER 11:56 → M.2W 16:27 → M.ICU 18:02 → M.2W 11-23 20:31
PROVIDERS: Emergency Medicine Emergency Medical Services; Internal Medicine; Internal Medicine Cardiovascular Disease; Internal Medicine Pulmonary Disease; ADMIT Internal Medicine; ATTEND Internal Medicine
PROC: B211YZZ Fluoroscopy of Multiple Coronary Arteries using Other Contrast (ICD-10-PCS; principal; 2020-11-24)
PROC: 4A023N7 Measurement of Cardiac Sampling and Pressure, Left Heart, Percutaneous Approach (ICD-10-PCS; principal; 2020-11-24)
PROC: B215YZZ Fluoroscopy of Left Heart using Other Contrast (ICD-10-PCS; principal; 2020-11-24)
DX: A41.9 Sepsis, unspecified organism (principal); J96.22 Acute and chronic respiratory failure with hypercapnia; J18.9 Pneumonia, unspecified organism; J96.21 Acute and chronic respiratory failure with hypoxia; I21.A1 Myocardial infarction type 2; I50.23 Acute on chronic systolic (congestive) heart failure; J44.1 Chronic obstructive pulmonary disease with (acute) exacerbation; K55.1 Chronic vascular disorders of intestine; I51.81 Takotsubo syndrome; I73.9 Peripheral vascular disease, unspecified; E78.5 Hyperlipidemia, unspecified; F17.210 Nicotine dependence, cigarettes, uncomplicated; D72.829 Elevated white blood cell count, unspecified; E04.1 Nontoxic single thyroid nodule; I25.5 Ischemic cardiomyopathy; E78.00 Pure hypercholesterolemia, unspecified; I65.29 Occlusion and stenosis of unspecified carotid artery; Z20.822 Contact with and (suspected) exposure to COVID-19; Z90.49 Acquired absence of other specified parts of digestive tract; Z98.49 Cataract extraction status, unspecified eye; Z79.899 Other long term (current) drug therapy

== ENCOUNTER 2020-11-30 10:07 | Emergency (ER) | payer MEDICARE, BC ==
[~2020-11-30] VITALS: Ht 172.7 cm; Wt 72.6 kg
[~2020-11-30 10:07] MED LIST changes: +ALBUTEROL2.5 MG/31 INH; +BAYER CHEWABLE81 MG PO; +CARVEDILOL3.125 MG PO; +CEFDINIR300 MG PO; +CLOPIDOGREL75 MG PO; +COZAAR 25 MG TA25 M1 PO; +DOXYCYCLINE 10100 MG PO; +DUONEBS; +LASIX 20 MG TAB20 MG PO; +LIPITOR 40 MG T40 M1 PO; +PROAIR HFA8.5 GM INH; +SPIRONOLACTONE25 MG PO; +[UNRECOGNIZED DRUG - OTHER] PO
[2020-11-30 10:14] VITALS: BP 124/94
[2020-11-30] MEDS ORDERED: FLEXERIL PO (10:22)
[2020-11-30] MEDS ORDERED: PULMICORT0.25 MG/2 INH (10:22)
[2020-11-30] MEDS ORDERED: HYDROCODON-ACE1 EAC7 PO (10:23)
[2020-11-30] MEDS ORDERED: SUPER THERAVIT1 EACH PO (10:23)
[2020-11-30] MEDS ORDERED: VITAMIN D3100 MCG PO (10:23)
[2020-11-30 10:35] LABS: HEMATOCRIT 48.9 % (42.0-52.0); HEMOGLOBIN 16.2 gm/dL (14.0-18.0); MCH 30.5 pg (26.0-34.0); MCHC 33.1 g/dL (28.0-37.0); MCV 92.2 fL (80.0-100.0); MPV 9.3 fl. (7.2-11.1); NUCLEATED RBCS 0 /100WBC; RDW-CV 13.3 % (10.5-14.5); WBC 28.5 thou/uL (4.0-11.0)
[2020-11-30 10:49] LABS: CALCIUM 10.4 mg/dL (8.5-10.1)
[2020-11-30 11:00] LABS: TOTAL BILIRUBIN 1.1 mg/dL (<0.1-1.0); TOTAL PROTEIN 7.2 g/dL (6.4-8.2)
[2020-11-30 11:10] LABS: ABSOLUTE EOSINOPHILS 0.3 thou/uL (0.0-0.7); ABSOLUTE LYMPHOCYTES 7.7 thou/uL (0.8-5.3); ABSOLUTE MONOCYTES 2.3 thou/uL (0.0-1.2); ABSOLUTE NEUTROPHILS 18.2 thou/uL (1.6-8.1); ANISOCYTOSIS 1+; ATYPICAL LYMPHS 1 %; CLUMPED PLTS RARE; MYELOCYTES 1 %; PLATELET COUNT* 366 thou/uL (150-400); PLATELET ESTIMATE ADEQUATE; POIKILOCYTOSIS 1+
[2020-11-30 12:25] LABS: APTT 21.8 Seconds (25.0-31.3); PROTIME 11.1 Seconds (9.20-11.50)
[2020-11-30] MEDS ORDERED: PREDNISONE 20 M20 M1 PO (13:47)
[2020-11-30] MEDS ORDERED: PERCOCET 5-3251 EACH PO (13:47)
[2020-11-30 14:00] VITALS: BP 120/77
--- NOTE | 2020-12-01 10:05 | EKG ---
[place] [address] ELECTROCARDIOGRAM REPORT Name: CHAU BOYLE Room: [facility]#: [id number] Admission: 11/30/20 Attend Phys: Discharge: 11/30/20 Date of : 50 Date of Service: 11/30/20 1016 Report #: [id number] THIS REPORT FOR: //name// [facility] ED Test Date: 2020-11-30 Test Time: 10:16:40 Pat Name: CHAU BOYLE Department: Room: [facility] Gender: M Farm Crew Member: SMITH : 1950 Requested By: Dimas Qureshi Order Number: [id number] MD: Hermes Diaz Measurements Intervals [place] Rate: 108 P: 78 W[place]: 194 QRS: 102 QRSD: 135 T: -18 QT: 354 QTc: 475 Interpretive Statements Sinus tachycardia Probable left atrial enlargement RBBB and LPFB Compared to ECG 11/22/2020 15:14:59 Left posterior fascicular block now present nonspecific st-t changes are noted Left anterior fascicular block no longer present Electronically Signed On 12-01-2020 10:05:08 CDT by Hermes Diaz [email or web address] <ELECTRONICALLY SIGNED> By: Hermes Diaz MD, FAC 12/01/20 1005 1016 1016 Hermes Diaz MD, [facility] /EPI
== END 2020-11-30 14:01 | disposition home or self-care (01) ==
LOC: M.ERS 10:07 → M.TBA-ER 10:55 → M.ERS 10:55
PROVIDERS: Family Medicine; Internal Medicine
DX: J96.90 Respiratory failure, unspecified, unspecified whether with hypoxia or hypercapnia (principal); J44.1 Chronic obstructive pulmonary disease with (acute) exacerbation; I50.9 Heart failure, unspecified; M54.9 Dorsalgia, unspecified; Z20.822 Contact with and (suspected) exposure to COVID-19; Z95.5 Presence of coronary angioplasty implant and graft